=== PATIENT | female | born 1950 | race Caucasian/White ===

== ENCOUNTER 2017-04-10 20:39 | Emergency (ER) | payer MEDICARE, OTHER ==
[2017-04-10 20:39] VITALS: BMI 28.3
[2017-04-10] MEDS ORDERED: Sodium Chloride 0.9% 1,000 ML IV ONE (21:38)
[2017-04-10 21:46] LABS: BASO # 0.2 K/uL (0.0-0.2); BASO % 1.5 % (0.0-2.0); HEMATOCRIT 39.7 % (34.0-47.0); LYMPH # 3.5 K/uL (1.0-4.3); LYMPH % 30.4 % (20.0-40.0); MEAN CELL VOLUME 91.1 fL (81.0-99.0); MEAN CORPUSCULAR HEMOGLOBIN 30.2 pg (27.0-31.0); MEAN CORPUSCULAR HGB CONC 33.2 g/dL (33.0-37.0); MEAN PLATELET VOLUME 7.8 fL (7.2-11.7); MONO # 0.3 K/uL (0.0-0.8); WHITE BLOOD COUNT 11.6 K/uL (4.8-10.8)
[2017-04-10 21:52] LABS: CHLORIDE 98 mmol/L (98-107); SODIUM 138 mmol/L (132-148)
[2017-04-10 21:54] LABS: GFR AFRICAN-AMERICAN > 60; POTASSIUM 4.8 mmol/L (3.6-5.2)
[2017-04-10 21:55] LABS: ALB/GLOB RATIO 1.2 (1.0-2.1); ALKALINE PHOSPHATASE 72 U/L (38-126); ALT/SGPT 30 U/L (9-52); AST/SGOT 43 U/L (14-36); BILIRUBIN,TOTAL 1.1 mg/dL (0.2-1.3); BLOOD UREA NITROGEN 17 mg/dL (7-17); CARBON DIOXIDE 19 mmol/L (22-30); GLUCOSE,RANDOM 213 mg/dL (65-105); TOTAL PROTEIN 8.9 g/dL (6.3-8.3)
[2017-04-10 21:56] LABS: CALCIUM 10.4 mg/dl (8.6-10.4)
[2017-04-10 23:09] LABS: RBC URINE 18 /hpf (0-3); URINE BACTERIA OCC (<OCC); URINE BILIRUBIN NEGATIVE (NEGATIVE); URINE BLOOD 1+ (NEGATIVE); URINE COLOR Yellow (YELLOW); URINE GLUCOSE (UA) 3+ mg/dL (Normal); URINE KETONE NEGATIVE (NEGATIVE); URINE LEUKOCYTE ESTERASE 2+ Leu/uL (Negative); URINE PROTEIN 2+ mg/dL (NEGATIVE); URINE UROBILINOGEN NORMAL mg/dL (0.2-1.0); WBC URINE 28 /hpf (0-5)
--- NOTE | 2017-04-10 23:11 | C.PDOC ---
History Of Present Illness 66 year old female who presents to the ER with a complaint of a headache, associated with some nausea and vomiting that began this afternoon. Patient saw her PMD today, Dr. David Stevens, for nasal congestion; he gave her a steroid injection(not flu shot) and gave her an Rx for nasal steroids which she did not fill. Patient reports she has not taken anything for the pain; denies fever or chills. Time Seen by Provider: 04/10/17 22:41 Chief Complaint (Nursing): Headache History Per: Patient History/Exam Limitations: no limitations Onset/Duration Of Symptoms: Hrs Current Symptoms Are (Timing): Still Present Preceeding Symptoms: None Associated Symptoms: Nausea, Vomiting. denies: Photophobia, Blurred Vision, Extremity Weakness Recent travel outside of the [place]: No Past Medical History Reviewed: Historical Data, Nursing Documentation, Vital Signs Vital Signs: Last Vital Signs Temp 98 F 04/10/17 20:59 Pulse 98 H 04/10/17 20:59 Resp 16 04/10/17 20:59 BP 186/85 H 04/10/17 20:59 Pulse Ox 100 04/10/17 23:22 - Medical History PMH: No Chronic Diseases - [facility] Procedures APPLICATION OF SPLINT (02/28/14) COLONOSCOPY (04/12/15) ESOPHAGOGASTRODUODENOSCOPY [EGD] W/CLOSED BIOPSY (04/12/15) EXCIS KNEE SEMILUN CARTL (05/11/14) KNEE SYNOVECTOMY (05/11/14) OTHER JOINT MOBILIZATION (05/11/14) Family History: States: Unknown Family Hx - Social History Hx Alcohol Use: No Hx Substance Use: No Review Of Systems Constitutional: Negative for: Fever, Chills ENT: Positive for: Nose Congestion Gastrointestinal: Positive for: Nausea, Vomiting Neurological: Positive for: Headache Physical Exam - Physical Exam Appears: Non-toxic, No Acute Distress Skin: Normal Color, Warm, Dry Head: Atraumatic, Normacephalic Nose: Other (Deviated septum. Right nasal passage erythema, right greater than left. ) Oral Mucosa: Moist Neck: Normal, Supple Chest: Symmetrical, No Tenderness Cardiovascular: Rhythm Regular, No Murmur Respiratory: Normal Breath Sounds, No Rales, No Rhonchi, No Wheezing Gastrointestinal/Abdominal: Soft, No Tenderness Neurological/Psych: Oriented x3, Normal Speech, Normal Cognition ED Course And Treatment - Laboratory Results Result Diagrams: 04/10/17 21:40 04/10/17 21:40 Lab Interpretation: Abnormal (no L-shift (c/w steroid injection given earlier today) + 28 WBC's in urine) ECG: Interpreted By Me ECG Rhythm: Sinus Rhythm ECG Interpretation: Normal Rate From EC O2 Sat by Pulse Oximetry: 100 (Room air) Pulse Ox Interpretation: Normal Progress Note: Blood work, EKG, and urinalysis ordered. Tramadol and IV fluids administered. Reevaluation Time: 23:46 Reassessment Condition: Improved Medical Decision Making Medical Decision Making: typical sinusitus, h/o same with deviated septum and nasal surgery mild leukocytosis related to probable steroid injection given @ PMD earlier today elev glu this afternoon because did not take AM Metformin, glucose controlled after dinner and metformin PO nasal steroid spray Rx'd earlier today, encouraged to continue. Bactrim PO for mild UTI and ? underlying mild sinus infection (no purulent d/c.) Disposition Doctor Will See Patient In The: Office Counseled Patient/Family Regarding: Studies Performed, Diagnosis - Disposition Disposition: HOME/ ROUTINE Disposition Time: 23:48 Condition: GOOD Forms: [facility] (Bengali) - Clinical Impression Clinical Impression: Acute recurrent sinusitis, UTI (urinary tract infection) - Scribe Statement The provider has reviewed the documentation as recorded by the Scribantonio Moraes All medical record entries made by the Scribe were at my direction and personally dictated by me. I have reviewed the chart and agree that the record accurately reflects my personal performance of the history, physical exam, medical decision making, and the department course for this patient. I have also personally directed, reviewed, and agree with the discharge instructions and disposition.
[2017-04-10] MEDS ORDERED: Tmp-Smz 800 mg-160 mg DS Tab PO STA (23:39)
[2017-04-10] MEDS ORDERED: Tmp-Smz 800 mg-160 mg DS Tab ONE (23:47)
[2017-04-11 00:27] VITALS: BP 149/72; PULSE 64; RESP 20; TEMP 97.6; O2SAT 98
--- NOTE | 2017-04-11 14:15 | CARD ---
APPROVED REPORT EKG Measurement Heart [id number] <Conclusion> Normal sinus rhythm Minimal voltage criteria for LVH, may be normal variant Nonspecific T wave abnormality Prolonged QT Abnormal ECG
== END 2017-04-11 00:36 | disposition home or self-care (01) ==
LOC: C.ER 20:39
DX: N39.0 Urinary tract infection, site not specified (principal); J01.91 Acute recurrent sinusitis, unspecified
CPT/HCPCS: 80053; 81001; 82948; 84484; 85025; 93005; 96360; 99285; J7040